=== PATIENT | male | born 1965 | race Caucasian/White ===

== ENCOUNTER 2021-09-30 09:23 | Emergency (ER) | payer SELFPAY ==
[2021-09-30] MEDS ORDERED: Sodium Chloride 0.9% 1,000 ML ONE (10:26)
[2021-09-30] MEDS ORDERED: Prochlorperazine 10 MG/2 ML VIAL ONE (10:26)
[2021-09-30 10:39] LABS: White Blood Cell (WBC) Count 12.4 thou/uL (4.8-10.8)
[2021-09-30 10:40] LABS: %Eosinophils 0.7 % (0.0-10.0); %Lymphocytes 4.7 % (21.0-51.0); %Monocytes 4.6 % (0.0-10.0); %Neutrophils 89.9 % (42.0-75.0); Hemoglobin 14.8 g/dL (14.0-18.0); Mean Corpuscular HGB CONC 33.2 g/dL (32.0-36.0); Mean Corpuscular Hemoglobin 31.6 pg (27.0-31.0); Mean Corpuscular Volume 95.2 fL (78.0-98.0); Mean Platelet Volume 7.5 fL (7.4-10.4); Platelet Count 289 thou/uL (130-400); RBC Distribution Width 11.6 % (11.5-14.5)
[2021-09-30 10:41] LABS: #Basophils 0.1 thou/uL (0.0-0.2); #Lymphocytes 0.6 thou/uL (1.20-3.40); #Monocytes 0.6 thou/uL (0.11-0.59); #Neutrophils 11.2 thou/uL (1.40-6.50); %Basophils 0.6 % (0.0-1.0)
[2021-09-30 10:46] LABS: ALT (SGPT) 19 U/L (8-55); AST (SGOT) 17 U/L (5-34); Albumin 4.5 g/dL (3.5-5.0); Alkaline Phosphatase 99 U/L (40-110); Anion Gap 15 mmol/L (10-20); BUN (Urea Nitrogen) 13 mg/dL (8.4-25.7); Bilirubin, Total 0.7 mg/dL (0.2-1.2); Calc. Creatinine Clearance 0 mL/min (70-130); Calcium 10.2 mg/dL (7.8-10.44); Carbon Dioxide 23 mmol/L (22-29); Chloride 105 mmol/L (98-107); Globulin 3.4 g/dL (2.4-3.5); Glucose 113 mg/dL (70-105); Potassium 3.6 mmol/L (3.5-5.1); Protein, Total 7.9 g/dL (6.0-8.3); Sodium 139 mmol/L (136-145)
[2021-09-30] MEDS ORDERED: Ketorolac Tromethamine 30 MG/ML VIAL ONE (11:16)
== END 2021-09-30 11:43 | disposition home or self-care (01) ==
LOC: MADERS 09:23
DX: S16.1XXA Strain of muscle, fascia and tendon at neck level, initial encounter (principal); A08.4 Viral intestinal infection, unspecified; Z87.891 Personal history of nicotine dependence
CPT/HCPCS: 80053; 83735; 85025; 96374; 96375; J0780; J1885; J7050

== ENCOUNTER 2022-03-26 14:45 | Outpatient (CLI) | payer SELFPAY | END 2022-03-26 14:46 | disposition home or self-care (01) | LOC: MADRAD 14:45 | PROVIDERS: ATTEND Family Medicine | DX: M54.50 Low back pain, unspecified (principal); M47.816 Spondylosis without myelopathy or radiculopathy, lumbar region; M47.817 Spondylosis without myelopathy or radiculopathy, lumbosacral region; W18.30XA Fall on same level, unspecified, initial encounter | CPT/HCPCS: 72100 ==